=== PATIENT | male | born 1965 | race Caucasian/White ===

== ENCOUNTER 2021-03-01 06:11 | Emergency (ER) | payer OTHER ==
[~2021-03-01 06:11] MED LIST: ANTIVERT 25MG T25 MG PO; FLOMAX0.4 MG PO; NORFLEX 100 MG100 MG PO; PERCOCET 5-3251 EACH PO; TORADOL 10 MG T10 MG PO; VIBRAMYCIN100 MG PO; Voltaren Gel 1 % TOP
[2021-03-01 06:56] LABS: HEMOGLOBIN 13.2 gm/dl (14.0-17.5); RED BLOOD COUNT 4.65 M/UL (4.20-5.50)
[2021-03-01 07:22] LABS: BUN/CREATININE RATIO 10 (0-10)
[2021-03-01] MEDS ORDERED: AMOX TR-K CLV1 EAC3 PO (08:57)
== END 2021-03-01 09:09 | disposition home or self-care (01) ==
LOC: ER1 06:11
PROVIDERS: Family Medicine
DX: K57.32 Diverticulitis of large intestine without perforation or abscess without bleeding (principal); I10 Essential (primary) hypertension; Z87.442 Personal history of urinary calculi; Z88.1 Allergy status to other antibiotic agents; Z79.899 Other long term (current) drug therapy
CPT/HCPCS: 80053; 81001; 83690; 85025; 93005; 96374; 96375; 99284; J1885; J2270; J2405; J7120; Q9967